=== PATIENT | female | born 1975 | race Hispanic/Latino ===

== ENCOUNTER 2018-06-27 08:20 | Emergency (ER) | payer OTHER, SELFPAY ==
--- NOTE | 2018-06-27 09:51 | RAD ---
[facility]: Right foot pain COMPARISON: None FINDINGS: There are periarticular erosions involving the great toe metatarsal head as well as the fif th digit metatarsal with overlying soft tissue prominence. No acute fracture or subluxation is eviden t. Lisfranc alignment is preserved. Mild enthesopathic changes seen off of the calcaneus. IMPRESSION: No acute fracture or subluxation. Periarticular erosive change with soft tissue prominenc e can be seen with entities such as gout or possibly CPPD deposition disease.
[2018-06-27] MEDS ORDERED: Ketorolac Tromethamine 30 MG/ML VIAL ONE (10:05)
== END 2018-06-27 10:27 | disposition home or self-care (01) ==
LOC: ERS 08:20
DX: S90.111A Contusion of right great toe without damage to nail, initial encounter (principal); D64.9 Anemia, unspecified; F41.9 Anxiety disorder, unspecified; F17.210 Nicotine dependence, cigarettes, uncomplicated; W23.0XXA Caught, crushed, jammed, or pinched between moving objects, initial encounter
CPT/HCPCS: J1885

== ENCOUNTER 2019-03-23 13:19 | Emergency (ER) | payer SELFPAY | END 2019-03-23 14:02 | disposition home or self-care (01) | LOC: ERS 13:19 | DX: B00.89 Other herpesviral infection (principal); D64.9 Anemia, unspecified; F41.9 Anxiety disorder, unspecified | CPT/HCPCS: 12001 ==

== ENCOUNTER 2020-02-27 12:54 | Emergency (ER) | payer SELFPAY ==
[2020-02-27 17:35] LABS: SARS-CoV-2 MS2 Positive; SARS-CoV-2 N Gene Negative; SARS-CoV-2 S Gene Negative; SARS-CoV-2 by NAA Not Detected (NotDetected); SARS-CoV-2 orf1ab Negative
== END 2020-02-27 13:25 | disposition home or self-care (01) ==
LOC: ERS 12:54
DX: Z20.828 Contact with and (suspected) exposure to other viral communicable diseases (principal); D64.9 Anemia, unspecified
CPT/HCPCS: 87635; 99283; U0003

== ENCOUNTER 2022-06-12 15:51 | Inpatient (IN) | payer BC ==
[2022-06-12 18:18] LABS: #Eosinphils 0.3 thou/uL (0.0-0.7); #Monocytes 0.3 thou/uL (0.11-0.59); #Neutrophils 4.1 thou/uL (1.40-6.50); %Basophils 0.2 % (0.0-1.0); %Eosinophils 5.1 % (0.0-10.0); %Lymphocytes 17.3 % (21.0-51.0); %Neutrophils 71.4 % (42.0-75.0); Hemoglobin 7.5 g/dL (12.0-16.0); Mean Corpuscular HGB CONC 32.6 g/dL (32.0-36.0); Mean Corpuscular Hemoglobin 28.4 pg (27.0-31.0); Mean Corpuscular Volume 87.1 fl (78.0-98.0); Mean Platelet Volume 7.1 fL (7.4-10.4); Platelet Count 309 10x3/uL (130-400); RBC Distribution Width 20.2 % (11.5-14.5); Red Blood Cell (RBC) Count 2.65 mill/uL (4.20-5.40); White Blood Cell (WBC) Count 5.7 10x3/uL (4.8-10.8)
[2022-06-12] MEDS ORDERED: Ketorolac Tromethamine 30 MG/ML VIAL ONE (18:19)
[2022-06-12 18:39] LABS: ALT (SGPT) 16 U/L (8-55); AST (SGOT) 20 U/L (5-34); Albumin 3.9 g/dL (3.5-5.0); Alkaline Phosphatase 53 U/L (40-110); Anion Gap 11 mmol/L (10-20); BUN (Urea Nitrogen) 9 mg/dL (7.0-18.7); Bilirubin, Total 1.5 mg/dL (0.2-1.2); Calc. Creatinine Clearance 0 mL/min (70-130); Calcium 8.6 mg/dL (7.8-10.44); Carbon Dioxide 20 mmol/L (22-29); Chloride 109 mmol/L (98-107); Estimated GFR 94; Globulin 3.2 g/dL (2.4-3.5); Glucose 102 mg/dL (70-105); Potassium 3.4 mmol/L (3.5-5.1); Protein, Total 7.1 g/dL (6.0-8.3); Sodium 137 mmol/L (136-145)
[2022-06-12] MEDS ORDERED: Ondansetron PF 4 MG/2 ML Vial IVP PRN (21:23)
[2022-06-12] MEDS ORDERED: Acetaminophen 325 MG TAB PO PRN (21:23)
[2022-06-12] MEDS ORDERED: Pantoprazole 40 MG VIAL IVP SCH (21:30)
[2022-06-12 22:26] VITALS: BMI 42.0
[2022-06-12 23:15] LABS: Troponin I Less than 0.010 ng/mL (< 0.028)
[2022-06-12] MEDS ORDERED: Potassium Chloride 20 MEQ TAB PO SCH (23:59)
[2022-06-12] MEDS ORDERED: Furosemide 20 MG/2 ML VIAL SLOW IVP SCH (23:59)
[2022-06-13 05:23] LABS: #Eosinphils 0.3 thou/uL (0.0-0.7); #Lymphocytes 1.2 thou/uL (1.20-3.40); #Monocytes 0.4 thou/uL (0.11-0.59); #Neutrophils 2.9 thou/uL (1.40-6.50); %Basophils 0.5 % (0.0-1.0); %Eosinophils 6.9 % (0.0-10.0); %Monocytes 7.7 % (0.0-10.0); Hemoglobin 8.6 g/dL (12.0-16.0); Mean Corpuscular HGB CONC 33.8 g/dL (32.0-36.0); Mean Corpuscular Hemoglobin 29.5 pg (27.0-31.0); Mean Corpuscular Volume 87.1 fl (78.0-98.0); Mean Platelet Volume 7.2 fL (7.4-10.4); Platelet Count 282 10x3/uL (130-400); RBC Distribution Width 19.7 % (11.5-14.5); White Blood Cell (WBC) Count 4.8 10x3/uL (4.8-10.8)
[2022-06-13 05:48] LABS: Anion Gap 12 mmol/L (10-20); BUN (Urea Nitrogen) 9 mg/dL (7.0-18.7); Calc. Creatinine Clearance 148 mL/min (70-130); Calcium 8.6 mg/dL (7.8-10.44); Carbon Dioxide 22 mmol/L (22-29); Chloride 109 mmol/L (98-107); Estimated GFR 99; Glucose 95 mg/dL (70-105); Potassium 3.5 mmol/L (3.5-5.1); Sodium 139 mmol/L (136-145); Troponin I Less than 0.010 ng/mL (< 0.028)
[2022-06-13] MEDS: Levothyroxine Sodium 75 MCG TAB PO SCH (05:55)
[2022-06-13] MEDS: Furosemide 20 MG/2 ML VIAL SLOW IVP SCH ×2 (05:57→14:16)
[2022-06-13 06:09] LABS: INR-International Normal Ratio 1.1; Prothrombin Time 14.5 sec (12.0-14.7)
[2022-06-13 08:23] LABS: Troponin I Less than 0.010 ng/mL (< 0.028)
[2022-06-13] MEDS: Sertraline 100 MG TAB PO SCH (08:41)
[2022-06-13] MEDS: Pantoprazole 40 MG VIAL IVP SCH (08:41)
[2022-06-13] MEDS: Ferrous Sulfate 325 MG TAB PO SCH (08:41)
[2022-06-13] MEDS ORDERED: Iopamidol-370 76% 500 ML MDV (1 ML CHARGE) ONE (10:24)
[2022-06-13] MEDS ORDERED: GoLYTELY 4,000 ml Bottle PO SCH (17:00)
[2022-06-14 05:07] LABS: #Eosinphils 0.3 thou/uL (0.0-0.7); #Lymphocytes 1.1 thou/uL (1.20-3.40); #Monocytes 0.3 thou/uL (0.11-0.59); #Neutrophils 3.5 thou/uL (1.40-6.50); %Basophils 0.1 % (0.0-1.0); %Eosinophils 5.1 % (0.0-10.0); %Lymphocytes 20.7 % (21.0-51.0); %Neutrophils 68.2 % (42.0-75.0); Hemoglobin 9.2 g/dL (12.0-16.0); Mean Corpuscular HGB CONC 33.7 g/dL (32.0-36.0); Mean Corpuscular Hemoglobin 29.2 pg (27.0-31.0); Mean Corpuscular Volume 86.7 fl (78.0-98.0); Mean Platelet Volume 7.1 fL (7.4-10.4); Platelet Count 297 10x3/uL (130-400); RBC Distribution Width 19.5 % (11.5-14.5); Red Blood Cell (RBC) Count 3.15 mill/uL (4.20-5.40); White Blood Cell (WBC) Count 5.1 10x3/uL (4.8-10.8)
[2022-06-14] MEDS: Levothyroxine Sodium 75 MCG TAB PO SCH (05:26)
[2022-06-14 05:30] LABS: Anion Gap 15 mmol/L (10-20); BUN (Urea Nitrogen) 9 mg/dL (7.0-18.7); Calc. Creatinine Clearance 158 mL/min (70-130); Calcium 8.8 mg/dL (7.8-10.44); Carbon Dioxide 20 mmol/L (22-29); Chloride 107 mmol/L (98-107); Estimated GFR 107; Glucose 87 mg/dL (70-105); Magnesium 1.9 mg/dL (1.6-2.6); Potassium 3.4 mmol/L (3.5-5.1); Sodium 139 mmol/L (136-145)
[2022-06-14] MEDS: Furosemide 20 MG/2 ML VIAL SLOW IVP SCH ×2 (05:59→12:22)
[2022-06-14] MEDS ORDERED: Potassium Chloride 20 MEQ in Premix Bag 1 BAG IVPB SCH (10:15)
[2022-06-14] MEDS ORDERED: Lidocaine 1% PF 5 ML VIAL ONE (11:06)
[2022-06-14] MEDS ORDERED: PROPOFOL 200 MG/20 ML VIAL ONE (11:06)
[2022-06-14] MEDS: Sertraline 100 MG TAB PO SCH (12:20)
[2022-06-14] MEDS: Ferrous Sulfate 325 MG TAB PO SCH (12:21)
[2022-06-14] MEDS: Pantoprazole 40 MG VIAL IVP SCH (12:22)
[2022-06-14 12:36] VITALS: BP 136/64; TEMP 98.5
[2022-06-14] MEDS ORDERED: Methylcellulose 500 MG TAB PO SCH (21:00)
[2022-06-14] MEDS ORDERED: Hydrocortisone Acetate 25 MG Suppository PR SCH (21:00)
== END 2022-06-14 14:55 | disposition home or self-care (01) | DRG 812 ==
LOC: ERS 15:51 → 2SW 20:25 → OBSVTOIN 06-14 12:01
PROVIDERS: ADMIT Internal Medicine; ATTEND Nurse Practitioner Family
PROC: 30233N1 Transfusion of Nonautologous Red Blood Cells into Peripheral Vein, Percutaneous Approach (ICD-10-PCS; principal; 2022-06-12)
PROC: 0DJ08ZZ Inspection of Upper Intestinal Tract, Via Natural or Artificial Opening Endoscopic (ICD-10-PCS; 2022-06-14)
PROC: 0DJD8ZZ Inspection of Lower Intestinal Tract, Via Natural or Artificial Opening Endoscopic (ICD-10-PCS; 2022-06-14)
DX: D50.9 Iron deficiency anemia, unspecified (principal); K62.5 Hemorrhage of anus and rectum; Z20.822 Contact with and (suspected) exposure to COVID-19; E87.6 Hypokalemia; E03.9 Hypothyroidism, unspecified; F32.9 Major depressive disorder, single episode, unspecified; Z79.890 Hormone replacement therapy; Z79.899 Other long term (current) drug therapy; Z82.49 Family history of ischemic heart disease and other diseases of the circulatory system; Z87.891 Personal history of nicotine dependence; N92.0 Excessive and frequent menstruation with regular cycle; K64.8 Other hemorrhoids
CPT/HCPCS: 36415; 36430; 71045; 71275; 80048; 80053; 82274; 83735; 83880; 84484; 85025; 85379; 85610; 85730; 86850; 86870; 86900; 86901; 86922; 93005; 93306; 96372; 96374; 96375; 96376; C9113; G0378; J1885; J1940; J2704; P9016; Q9967; U0003; U0005

== ENCOUNTER 2023-04-26 18:35 | Emergency (ER) | payer BC ==
[2023-04-26 19:48] LABS: #Eosinphils 0.2 thou/uL (0.0-0.7); #Monocytes 0.4 thou/uL (0.11-0.59); #Neutrophils 5.5 thou/uL (1.40-6.50); %Basophils 0.3 % (0.0-1.0); %Eosinophils 3.2 % (0.0-10.0); %Lymphocytes 16.3 % (21.0-51.0); %Monocytes 5.2 % (0.0-10.0); %Neutrophils 74.7 % (42.0-75.0); Hemoglobin 11.6 g/dL (12.0-16.0); Mean Corpuscular HGB CONC 35.2 g/dL (32.0-36.0); Mean Corpuscular Hemoglobin 34.4 pg (27.0-31.0); Mean Corpuscular Volume 97.9 fl (78.0-98.0); Mean Platelet Volume 9.7 fL (7.4-10.4); Platelet Count 220 10x3/uL (130-400); RBC Distribution Width 13.6 % (11.5-14.5); Red Blood Cell (RBC) Count 3.37 mill/uL (4.20-5.40); White Blood Cell (WBC) Count 7.3 10x3/uL (4.8-10.8)
[2023-04-26 19:58] LABS: BHCG - Serum Negative (NEGATIVE); Pregs Control Background? CLEAR/WHITE (CLR/WHITE); Pregs Control Bar Appear? YES (CONTROL BAR)
[2023-04-26 20:13] LABS: ALT (SGPT) 21 U/L (8-55); AST (SGOT) 21 U/L (5-34); Alkaline Phosphatase 56 U/L (40-110); Anion Gap 12 mmol/L (10-20); BUN (Urea Nitrogen) 15 mg/dL (7.0-18.7); Bilirubin, Total 0.7 mg/dL (0.2-1.2); Calc. Creatinine Clearance 0 mL/min (70-130); Calcium 9.1 mg/dL (7.8-10.44); Carbon Dioxide 23 mmol/L (22-29); Chloride 107 mmol/L (98-107); Estimated GFR 81; Globulin 3.2 g/dL (2.4-3.5); Glucose 107 mg/dL (70-105); Lipase 34 U/L (8-78); Potassium 3.9 mmol/L (3.5-5.1); Protein, Total 7.2 g/dL (6.0-8.3); Sodium 138 mmol/L (136-145)
[2023-04-26 20:14] LABS: Troponin I Less than 0.010 ng/mL (< 0.028)
[2023-04-26] MEDS ORDERED: Ketorolac Tromethamine 30 MG (1 mL) VIAL ONE (20:46)
== END 2023-04-26 20:59 | disposition home or self-care (01) ==
LOC: ERS 18:35
DX: S29.011A Strain of muscle and tendon of front wall of thorax, initial encounter (principal); R07.9 Chest pain, unspecified; W01.0XXA Fall on same level from slipping, tripping and stumbling without subsequent striking against object, initial encounter; Z87.891 Personal history of nicotine dependence
CPT/HCPCS: 36415; 71046; 80053; 83690; 84484; 84703; 85025; 93005; 96372; J1885